=== PATIENT | male | born 1980 | race Caucasian/White ===

== ENCOUNTER 2021-05-13 05:47 | Inpatient (IN) | payer OTHER ==
[~2021-05-13] VITALS: Ht 185.4 cm; Wt 122.5 kg
--- NOTE | 2021-05-13 06:12 | NUR ---
BIBWIFE. DIFFUSED ABD PAIN AFTER DINNER. VOMMITING X 8-9 EPISODE. PATIENT ALERT AND ORIENTED X3. AMBULATORY WITH NON LABORED BREATHING. PLACED IN BED 10 ON MONITOR AND POX.
[2021-05-13] MEDS ORDERED: ONDANSETRON HCL/PF 4 MG/2 ML VIAL ONE (06:17)
[2021-05-13] MEDS: ONDANSETRON HCL/PF 4 MG/2 ML VIAL IVP ONE ×2 (06:21→06:37)
--- NOTE | 2021-05-13 06:21 | NUR ---
BLOOD COLLECTED AND SENT TO LAB
[2021-05-13] MEDS ORDERED: IV NS 0.9% 1,000 ML BAG IV ONE (06:30)
[2021-05-13 06:48] LABS: BASOPHILS # (AUTO) 0.1 K/uL (0.0-0.2); BASOPHILS % (AUTO) 0.6 % (0.0-2.0); EOSINOPHILS % (AUTO) 0.4 % (0.0-6.0); HEMATOCRIT 41 % (39-51); HEMOGLOBIN 13.9 g/dL (13.5-17.5); LYMPHOCYTES % (AUTO) 13.1 % (20.0-44.0); MEAN CORPUSCULAR HGB CONC 34 g/dl (31.0-36.0); MEAN CORPUSCULAR VOLUME 88 fL (80-96); MONOCYTES # (AUTO) 0.7 K/uL (0.1-1.30); MONOCYTES % (AUTO) 4.4 % (2.0-12.0); NEUTROPHILS # (AUTO) 12.5 K/uL (1.8-8.9); NEUTROPHILS % (AUTO) 81.5 % (43.0-81.0); PLATELET COUNT (AUTO) 266 K/uL (150-450); RED BLOOD CELL COUNT(AUTO) 4.69 MIL/uL (4.5-6.0); WHITE BLOOD COUNT (AUTO) 15.3 K/uL (4.3-11.0)
[2021-05-13 07:13] LABS: ALBUMIN 3.9 g/dL (3.4-5.0); BILIRUBIN,DIRECT 0.1 mg/dL (0.0-0.2); BILIRUBIN,TOTAL 0.3 mg/dL (0.2-1.0); CREATININE 1.4 mg/dL (0.6-1.3); POTASSIUM 4.2 mmol/L (3.5-5.1)
--- NOTE | 2021-05-13 07:49 | NUR ---
ULTRASOUND AT BEDSIDE
--- NOTE | 2021-05-13 08:25 | NUR ---
PO CHALLENGE CONDUCTED. PT IS ABLE TO TOLERATED CRACKERS AND WATER.
--- NOTE | 2021-05-13 08:45 | NUR ---
MOVE SHEET SUBMITTED AND CALLED FOR MS BED.
--- NOTE | 2021-05-13 08:51 | NUR ---
PT BACK FROM CT VIA [facility]
--- NOTE | 2021-05-13 09:25 | NUR ---
DR. HAMLIN SPEAKING WITH DR. AGGARWAL.
--- NOTE | 2021-05-13 09:27 | NUR ---
[facility] CALLED SHIFT SUPERVISOR RN PAGED.
[2021-05-13] MEDS ORDERED: ONDANSETRON HCL/PF 4 MG/2 ML VIAL IVP PRN ×2 (09:30→19:00)
[2021-05-13] MEDS ORDERED: PIPERACILLIN /TAZOBACTAM 3.375 G in IV D5W 50 ML IV ONE (09:30)
[2021-05-13] MEDS ORDERED: ACETAMINOPHEN 325 MG TABLET PO PRN (09:30)
[2021-05-13] MEDS ORDERED: LABETALOL 20 MG/4 ML VIAL IV PRN (09:30)
[2021-05-13] MEDS ORDERED: MORPHINE SULFATE INJ 2 MG/ML DISP.SYRIN IV PRN (09:30)
[2021-05-13] MEDS ORDERED: INDO50CA91 PO (09:32)
[2021-05-13] MEDS ORDERED: ALLO300T2 PO (09:32)
--- NOTE | 2021-05-13 09:39 | NUR ---
COVID TEST COLLECTED AND SENT
[2021-05-13] MEDS: IV NS 0.9% 1,000 ML IV SCH ×2 (10:00→11:44)
--- NOTE | 2021-05-13 10:30 | NUR ---
CALLED FOR REPORT RN AT BEDSIDE. WILL CALL BACK AFTER 10 MINS.
--- NOTE | 2021-05-13 10:53 | NUR ---
REPORT GIVEN TO DONI BAKER FOR MELO.
--- NOTE | 2021-05-13 11:17 | NUR ---
PT TRASNPORT TO MED SURG ROOM IN STABLE CONDTION.
[2021-05-13 11:20] VITALS: BP 133/80
--- NOTE | 2021-05-13 11:20 | NUR ---
MS DRUG SAFETY ASSOCIATE NOTES RECEIVED PATIENT FROM ER ENDORSED BY DONI PEPPER VIA STRETCHER. PATIENT IS AWAKE AND A/O X4. ON ROOM AIR TOLERATING WELL. NO SOB NOTED. NOT IN DISTRESS. WITH COMPLAINTS OF PAIN AT THE RLQ OF THE ABDOMEN. COMFORT MEARES PROVIDED. WITH IV ACCESS AT THE LEFT AC G20 WITH IVF NS AT 125ML/HR INFUSING WELL. IV SITE IS PATENT AND INTACT. WITH NO SKIN ISSUES. ON NPO AWAITING FOR THE SURGERY CONSULT. MADE COMFORTABLE ON BED. SAFETY MEASURES IN PLACED. CALL LIGHT WITHIN REACH. BED ON LOWEST LOCKED POSITION, SIDE RAILS UP X2. WILL CONTINUE TO MONITOR.
[2021-05-13] MEDS: CEFEPIME 2 GM in IV D5W 100 ML IV SCH ×2 (11:44→22:39)
[2021-05-13] MEDS ORDERED: HYDROMORPHONE INJ 2 MG/ML DISP.SYRIN ONE (16:33)
[2021-05-13] MEDS ORDERED: FENTANYL PF 250MCG/5ML AMPUL ONE (16:33)
[2021-05-13] MEDS ORDERED: FAMOTIDINE/PF INJ 20 MG/2 ML VIAL IV ONE (16:34)
[2021-05-13] MEDS ORDERED: MIDAZOLAM HCL 2 MG/2ML VIAL ONE (16:34)
[2021-05-13] MEDS ORDERED: ROCURONIUM BROMIDE 50 MG/5 ML ONE (16:34)
[2021-05-13] MEDS ORDERED: ANESTHESIA TRAY IN PYXIS 1 EA TRAY MC ONE (16:37)
[2021-05-13] MEDS ORDERED: LIDOCAINE 1%-EPI 1:100,000 20 ML VIAL ONE (16:38)
[2021-05-13] MEDS ORDERED: BUPIVACAINE 0.5 % PF 150 MG/30 ML VIAL ONE (16:38)
--- NOTE | 2021-05-13 16:40 | NUR ---
RN NOTE SENT PATIENT TO OR FOR SURGERY WITH CONSENT SIGNED BY PATIENT AND A FILLED OUT CHECKLIST.
[2021-05-13] MEDS ORDERED: BACITRACIN ZINC OINT (15 GM) 15 GM TUBE TP ONE (17:39)
[2021-05-13] MEDS ORDERED: IV LR 1000 ML 1,000 ML IV PRN (19:00)
[2021-05-13] MEDS ORDERED: HYDROMORPHONE 1 MG/1 ML DISP.SYRIN IV PRN (19:00)
--- NOTE | 2021-05-13 19:04 | NUR ---
RN CLOSING NOTES PATIENT STILL IN THE OR. WILL ENDORSE TO NEXT SHIFT.
[2021-05-13] MEDS ORDERED: hydrALAZINE HCL IV 20 MG VIAL ONE (19:06)
--- NOTE | 2021-05-13 19:45 | NUR ---
MS RN OPENING NOTES RECEIVED PATIENT FROM OR VIA [facility]. PATIENT IS AWAKE AND A/O X4. ON O2 3LPM WITH O2 SAT @ 97%. NO SOB OR S/S OF RESPIRATORY DISTRESS. IV ACCESS AT THE LAC 20 GAUGE RUNNING LR @ 150 ML/HR. INCISION DRESSINGS C/D/I. SAFETY PRECAUTIONS IN PLACE. BED IN LOWEST LOCKED POSITION, HOB ELEVATED, SIDE RAILS UP X2, AND CALL LIGHT AND TABLE WITHIN REACH. WILL CONTINUE WITH PLAN OF CARE.
[2021-05-13 20:00] VITALS: BP 112/61
[2021-05-14 06:30] LABS: HEMATOCRIT 38 % (39-51); HEMOGLOBIN 12.6 g/dL (13.5-17.5); LYMPHOCYTES # (AUTO) 1.2 K/uL (0.8-4.8); LYMPHOCYTES % (AUTO) 8.9 % (20.0-44.0); MEAN CORPUSCULAR HGB CONC 33 g/dl (31.0-36.0); MEAN CORPUSCULAR VOLUME 89 fL (80-96); MONOCYTES # (AUTO) 0.4 K/uL (0.1-1.30); NEUTROPHILS # (AUTO) 11.5 K/uL (1.8-8.9); NEUTROPHILS % (AUTO) 88.1 % (43.0-81.0); PLATELET COUNT (AUTO) 262 K/uL (150-450); RED BLOOD CELL COUNT(AUTO) 4.27 MIL/uL (4.5-6.0)
--- NOTE | 2021-05-14 06:33 | NUR ---
MS RN CLOSING NOTES PATIENT AWAKE IN BED. A/O X4. ON O2 3LPM WITH O2 SAT @ 97%. NO SOB OR S/S OF RESPIRATORY DISTRESS. IV ACCESS AT THE LAC 20 GAUGE RUNNING LR @ 150 ML/HR. INCISION DRESSINGS C/D/I. ALL NEEDS MET AT THIS TIME. SAFETY PRECAUTIONS IN PLACE AT ALL TIMES. BED IN LOWEST LOCKED POSITION, HOB ELEVATED, SIDE RAILS UP X2, AND CALL LIGHT AND TABLE WITHIN REACH. WILL ENDORSE TO ONCOMING SHIFT FOR MELO.
[2021-05-14 07:32] LABS: ALBUMIN 3.2 g/dL (3.4-5.0); BILIRUBIN,TOTAL 0.6 mg/dL (0.2-1.0); CALCIUM, SERUM 8.8 mg/dL (8.5-10.1); CREATININE 1.3 mg/dL (0.6-1.3); MAGNESIUM 2.2 mg/dL (1.8-2.4); POTASSIUM 4.2 mmol/L (3.5-5.1); TOTAL PROTEIN, SERUM 7.3 g/dL (6.4-8.2)
--- NOTE | 2021-05-14 07:36 | NUR ---
RN OPENING NOTES Patient seen comfortably lying in bed, no SOB, no apparent distress noted, breathing even and unlabored, denies any pain or discomfort at this time, no grimacing. Call light left within reach, safety precautions in place, brakes locked, side rails up X 2, will monitor closely for any changes.
[2021-05-14 08:09] VITALS: BP 112/53
[2021-05-14] MEDS ORDERED: AMOX-430 PO (08:49)
[2021-05-14] MEDS ORDERED: HEPARIN SODIUM, PORCINE 5000 UNITS/1 ML VIAL SQ SCH (09:00)
[2021-05-14] MEDS ORDERED: HYDR-3973 PO (11:03)
[2021-05-14] MEDS: CEFEPIME 2 GM in IV D5W 100 ML IV SCH (11:15)
--- NOTE | 2021-05-14 13:09 | NUR ---
Patient to be discharged home today, no apparent distress noted, no shortness of breath, respirations even and unlabored, denies any pain or discomfort at this time, no dizziness, no palpitations, no chest pain, no numbness, no s/s of hypo/hyperglycemia, no change in level in consciousness, able to follow simple commands, can make needs known, can ambulate with steady gait, no tremors. Abdominal bowel sounds present in all quadrants, no grimacing when abdomen palpated, patent complained of discomfort or abdominal soreness on surgical sites but per patient it is tolerable and preferred not to take pain medications, patient stated that he was able to pass gas. Patient made aware of the plan for discharge, he signed all discharge paper works, all belongings taken, inventory list signed by patient. Health teaching provided, verbalized understanding and gratitude. Reminded patient to pickling grader his new prescriptions at [facility] as soon as possible verbalized understanding and gratitude. Health teaching provided regarding new prescriptions, , reminded patient that dressings can be removed in 48 hours, and to observe for s/s of infection, unusual odor, unusual discharge, redness, fluid or blood, increased swelling. Educated patient that after procedure, soreness, swelling and pain that can be relieved by taking pain medicine is to be expected. Health teaching provided regarding incision care, bathing, activity, managing pain, stiffness and swelling, patient verbalized understanding and gratitude. Skin assessment done prior to discharge, skin intact, warm to touch, no pallor or cyanosis noted. Patient has surgical holes from laparoscopic appendectomy covered with dry, clean and intact dressings, no unusual odor, no unusual drainage noted, patient preferred not to have pictures of site taken, explained hospital protocol, risks and benefits thrice, still strongly refused, respected patient's wishes. Peripheral IV line on left antecubital removed prior to discharge, complete and intact, no excessive bleeding noted, site covered with dry dressing. Name wristband removed prior to discharge, surgical mask provided for patient to use. RN assisted patient going to the hospital parking lot via wheelchair, left unit at 1303pm with family via private car, stable condition, exit care documents handed to patient.
== END 2021-05-14 13:00 | disposition home or self-care (01) | DRG 853 ==
LOC: ER 06:04 → TRANSITION 10:22 → MED 10:34
PROVIDERS: ADMIT Internal Medicine; ATTEND Internal Medicine
PROC: 0DTJ4ZZ Resection of Appendix, Percutaneous Endoscopic Approach (ICD-10-PCS; principal; 2021-05-13)
DX: A41.9 Sepsis, unspecified organism (principal); N17.0 Acute kidney failure with tubular necrosis; K35.80 Unspecified acute appendicitis; E66.9 Obesity, unspecified; M10.9 Gout, unspecified; Z68.35 Body mass index [BMI] 35.0-35.9, adult; Z20.822 Contact with and (suspected) exposure to COVID-19
CPT/HCPCS: 36415; 76705-TC; 80048-TC; 80053-TC; 80076-TC; 83605-TC; 83690-TC; 83735-TC; 84100-TC; 85025-TC; 85730-TC; 87081-TC; C9803; G0378; J0360; J0690; J0692; J1100; J1170; J1644; J2250; J2405; J2543; J2704; J2765; J3010; J3490; J7030; J7060; J7120